=== PATIENT | female | born 1955 | race Caucasian/White ===

== ENCOUNTER 2023-07-01 13:00 | Outpatient (RCR) | payer BC, SELFPAY | END 2023-10-29 23:59 | disposition home or self-care (01) | PROVIDERS: PCP Internal Medicine; Visit Provider Internal Medicine | DX: M76.61 Achilles tendinitis, right leg (principal); M79.671 Pain in right foot; M62.89 Other specified disorders of muscle; Z51.89 Encounter for other specified aftercare | CPT/HCPCS: 97033; 97110; 97140; 97161 ==